=== PATIENT | male | born 1935 | race Caucasian/White ===

== ENCOUNTER 2023-02-02 09:38 | Inpatient (IN) | payer MEDICARE, BC, SELFPAY ==
[2023-02-02] VITALS (17 sets, daily range): BP systolic 57–174; BP diastolic 38–117; PULSE 76–122; RESP 18–31; TEMP 35.7–37.3; O2SAT 43–100; BMI 31.9
--- NOTE | ~2023-02-02 | XR_ITS ---
XR abdomen NG/feed tube insert INDICATION: Evaluate NG tube position. TECHNIQUE: Limited KUB perform for evaluating NG tube . COMPARISON: No prior studies for comparison. FINDINGS: NG tube tip in the stomach. Visualized bowel gas pattern is unremarkable. IMPRESSION: 1: NG tube tip in the stomach. Reviewed, dictated and finalized at location L.
--- NOTE | ~2023-02-02 | CT_ITS ---
Non-contrast Head CT History: Cardiac arrest Technique: Axial non-contrast imaging of the brain was performed. Dose reduction technique was used on this scan by utilizing automated exposure control and iterative reconstruction technique. The dose -length product (DLP) was 1135.00 mGy-cm. Findings: There is no evidence of intracranial hemorrhage, mass lesion, or acute infarct. Brain par enchyma appears normal. The ventricles and subarachnoid spaces are normal in size. The calvarium ap pears normal. The visualized paranasal sinuses and mastoid air cells are clear. Impression: No significant abnormality seen. Reviewed, dictated and finalized at location . Impression: No significant abnormality seen.
--- NOTE | ~2023-02-02 | CT_ITS ---
EXAMINATION: CT chest abdomen pelvis wo con DATE: 02/02/2023 12:38 CDT INDICATION: Shock. Cardiac arrest. TECHNIQUE: Computed tomography (CT) of the chest, abdomen, and pelvis was performed without intraveno us contrast. The dose-length product was 884.67 mGy-cm. Automated exposure control and iterative donta nstruction technique were employed. COMPARISON: None FINDINGS: CHEST CT: There is atherosclerosis of the aorta and coronary arteries. Heart size normal. No significant pleura l or pericardial effusion. There is an endotracheal tube and NG tube. There is a calcified granulomas in the spleen. There is severe emphysema. There are reticulonodular densities in the left lower lobe , image 62, most likely infectious/inflammatory. There is left upper lobe atelectasis/scarring. There is dependent atelectasis. ABDOMEN/PELVIS CT: Gallbladder is severely distended with gallstones and gallbladder wall thickening. There is a left re nal parapelvic cyst measuring 7.3 x 4.1 cm. Nonobstructive gas pattern. Smith catheter present in the bladder. Enlarged prostate gland. Colonic diverticulosis. There is a superior endplate compression f ractures of L2 and L4, likely chronic. There is wedge compression deformity of T12, likely chronic. 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 No evidence for aortic aneurysm. No lymphadenopathy. No free air or free fluid. IMPRESSION: 1. Distended gallbladder with cholelithiasis and gallbladder wall thickening. Consider cholecystitis in the appropriate clinical setting. 2: Reticulonodular densities left lower lobe, most likely infectious/inflammatory. 3: Enlarged prostate gland. Reviewed, dictated and finalized at location L. IMPRESSION: 1. Distended gallbladder with cholelithiasis and gallbladder wall thickening. C onsider cholecystitis in the appropriate clinical setting. 2: Reticulonodular densities left lower lobe, most likely infectious/inflammato ry. 3: Enlarged prostate gland.
--- NOTE | ~2023-02-02 | XR_ITS ---
XR chest 1V portable 02/02/2023 10:12 Indication: Cardiac arrest Procedure: AP portable chest Comparison: No prior studies for comparison. Findings: Endotracheal tube tip 6 cm above the tomasz. NG tube in the stomach. There are linear infil trates of the left upper thorax, most likely atelectasis/scarring. There are bibasilar infiltrates. T here is a coronary artery stents. No pneumothorax. No significant effusion. No acute osseous abnormal ity. Impression: 1: Bibasilar airspace disease may represent pneumonia and/or atelectasis. Reviewed, dictated and finalized at location L. Impression: 1: Bibasilar airspace disease may represent pneumonia and/or atelectasis.
[2023-02-02] MEDS: SODIUM CHLORIDE 0.9% IV 1,000 ML 999 ML IV CONT ×2 (09:38→10:31)
--- NOTE | 2023-02-02 09:51 | ECG_ITS ---
Measurements Intervals [place] Rate: 0 P: ND: 0 QRS: QRSD: 0 T: QT: 0 QTc: 0 Interpretive Statements ATRIAL FIBRILLATION RIGHT BUNDLE BRANCH BLOCK LOW VOLTAGE- DIFFUSE LEADS BASELINE ARTIFACT- I, II, III, AVL, AVF ABNORMAL ECG NO PREVIOUS ECG AVAILABLE FOR COMPARISON Electronically Signed On 02-02-2023 10:35:15 CDT by Pepito Villarreal D.O.
[2023-02-02] MEDS: AMIODARONE 360 MG/D5W 200 ML 360 MG/200 ML BAG 33.3 MG (09:55)
[2023-02-02 10:10] LABS: Alveolar/Arterial O2 Gradient 295.9 mmHg; Base Excess ABG -6.5 mEq/l (+/-2.0); Carboxyhemoglobin 0.7 % THb (0-2.0); Device VENTILATOR; Fractional Inspired Oxygen 100 %; HCO3 ABG 20.3 mEq/l (22.0-26.0); Methemoglobin ABG 0.1 %THb (0-1.5); Modified Allen's Test Pass; Oxygen Content ABG 17.1 %vol (16.0-22.0); Oxygen Saturation ABG 99.7 % (95.0-100.0); PCO2 ABG 45.6 mmHg (35.0-45.0); PO2 ABG 371.5 mmHg (80.0-100.0); PO2 FiO2 Ratio Arterial Blood 3.71 %; Reduced Hemoglobin 1.2 %THb (0-5.0); Site Drawn RIGHT RADIAL; Total Hemoglobin 11.7 g/dL (12.0-18.0); pH ABG 7.266 (7.350-7.450)
[2023-02-02 10:11] LABS: Arterial Blood Gas PEEP 5 cmH2O; Arterial Blood Gas Tidal Volume 500 ml; Arterial Blood Gas Vent Mode CMV; Arterial Blood Gas Ventilator rate 18 /MIN
[2023-02-02 10:11] LABS: Basophils Absolute Auto 0.1 K/mm3 (0.0-0.1); Basophils Percent Auto 0.4 % (0.2-1.2); Eosinophils Absolute Auto 0.1 K/mm3 (0-0.3); Eosinophils Percent Auto 0.6 % (0-4.4); Hematocrit 34.3 % (42.0-52.0); Hemoglobin 10.8 g/dL (14.0-18.0); Immature Granulocyte Absolute 1.34 K/mm3 (0.00-0.031); Immature Granulocyte Percent A 5.5 % (0-0.5); Lymphocytes Absolute Auto 5.32 K/mm3 (0.9-3.2); Lymphocytes Percent Auto 21.8 % (18.3-44.2); Mean Corpuscular HGB Conc 31.5 g/dl (32-36); Mean Corpuscular Volume 98.6 fl (80-100); Mean Platelet Volume 11.1 fl (7.4-10.4); Monocytes Absolute Auto 1.7 K/mm3 (0.1-0.6); Monocytes Percent Auto 7.1 % (2.6-8.5); Neutrophils Absolute Auto 15.8 K/mm3 (1.3-6.7); Neutrophils Percent Auto 64.6 % (45.5-73.1); Platelet Count Result 246 k/mm3 (150-375); Red Blood Count 3.48 M/mm3 (4.6-6.20); Red Cell Distribution Width 14.6 % (11.5-14.5); White Blood Count 24.4 K/mm3 (4.5-10.0)
--- NOTE | 2023-02-02 10:12 | ECHO_ITS ---
Patient Info Name: Jay Mccabe Age: 87 years : 1935 Gender: Male Ht: 70 in Wt: 145 lbs BSA: 1.80 m2 HR: 110 bpm BP: 142 / 92 mmHg Heart Rhythm: Sinus Rhythm Technical Quality: Good Exam Date: 02/02/2023 1:01 PM Exam Location: [facility] Patient Status: Inpatient Admit Date: 02/02/2023 Staff Ordering Physician: Wu Muller DO Plant Nursery Worker: Haily Sandoval RDCS Attending Provider: Abena Torres MD Referring Physician: Yohana MUSE; Exam Type: CA echo doppler color flow Study Info Indications I46.9 - Cardiac arrest, cause unspecified Complete two-dimensional, color flow and Doppler transthoracic echocardiogram is performed. Summary 1. Complete two-dimensional, color flow and Doppler transthoracic echocardiogram is performed. 2. Left ventricular chamber dimension is normal. 3. Left ventricular systolic function is normal, estimated at 55-60%. 4. There is no increased left ventricular wall thickness. 5. The left ventricular diastolic function is indeterminate. 6. Right ventricular chamber dimension is moderately enlarged. 7. Right ventricular systolic function is reduced. 8. Severe hypokinesis noted in the mid RV free wall to the apex. 9. Left atrial chamber dimension is mildly enlarged. 10. Right atrial chamber dimension is mildly enlarged. 11. There is at least moderate aortic valve stenosis with a peak velocity of 237 cm/s, mean gradient of 12 mmHg. the Calculated CHRISTIE is not accurate. 12. There is mild aortic valve regurgitation. 13. 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 14. There is mild mitral valve regurgitation. 15. The mitral valve annulus is moderately calcified. 16. There is mild tricuspid valve regurgitation. 17. Moderate pulmonary hypertension, estimated pulmonary arterial systolic pressure is 47 mmHg. 18. There is mild pulmonic regurgitation. Left Ventricle Left ventricular chamber dimension is normal. Left ventricular systolic function is normal, estimated at 55-60%. There is no increased left ventricular wall thickness. The left ventricular diastolic function is indeterminate. Right Ventricle Right ventricular chamber dimension is moderately enlarged. Right ventricular systolic function is reduced. Severe hypokinesis noted in the mid RV free wall to the apex. Left Atria Left atrial chamber dimension is mildly enlarged. Right Atria Right atrial chamber dimension is mildly enlarged. Atrial Septum Intact interatrial septum visualized by color flow imaging. Aortic Valve The aortic valve is trileaflet. There is at least moderate aortic valve stenosis with a peak velocity of 237 cm/s, mean gradient of 12 mmHg. the Calculated CHRISTIE is not accurate. There is mild aortic valve regurgitation. Pulmonic Valve The pulmonic valve is normal. There is no pulmonic valve stenosis. There is mild pulmonic regurgitation. Mitral Valve The mitral valve has anterior prolapse and posterior prolapse. There is no mitral valve stenosis. There is mild mitral valve regurgitation. The mitral valve annulus is moderately calcified. Tricuspid Valve The tricuspid valve leaflets are normal. There is no significant tricuspid valve stenosis. There is mild tricuspid valve regurgitation. Moderate pulmonary hypertension, estimated pulmonary arterial systolic pressure is 47 mmHg. Pericardium/Pleural The pericardium appears normal. There is trivial pericardial effusion. Inferior Vena Cava Normal inferior vena cava with >50% collapse upon inspiration consistent with normal right atrial pressure, 10 mmHg.
[2023-02-02 10:20] LABS: Albumin Level 3.4 g/dL (3.5-5.1); Alkaline Phosphatase 80 U/L (38-126); Anion Gap 15 mmol/L (8-16); Aspartate Amino Transferase 66 U/L (17-59); Bilirubin,Total 0.9 mg/dL (0.2-1.3); Blood Urea Nitrogen 38 mg/dL (9-20); Calcium 7.2 mg/dL (8.4-10.2); Carbon Dioxide 17 mmol/L (22-30); Chloride 100 mmol/L (98-107); Cholesterol 80 mg/dL (0-200); Estimated Glomerular Filt Rate 58; Glucose 311 mg/dL (65-110); HDL Direct 39 mg/dL; Potassium 4.9 mmol/L (3.4-5.0); Sodium 132 mmol/L (137-145); Triglycerides 80 mg/dL (<150)
--- NOTE | 2023-02-02 10:22 | ED.CPR ---
HPI - CPR General Chief Complaint: Cardiac Arrest/CPR Stated Complaint: cardiac arrest History of Present Illness HPI narrative: Pt was sitting on couch with watching TV and went unresponsive. She called 911 and EMS arrived in 2-3 minutes and found patient pulseless and not breathing. CPR started, Intubated. Per EMS pt went into v fib and was shocked. Pt went in and out of v fiv and intermittently got pulse back and then lost again. Pt shocked 5 times, given amiodarone 300 mg and 150 mg, epi 1 mg 3x. On arrival Austyn in place doing compressions. Pt has Hx of [place] and stents per Dr Szymanski at [facility] and has COPD hx on oxygen. Related Data Home Medications Medication Instructions Recorded Confirmed Ventolin HFA 2 puff inhalation Q4H PRN Wheezing 02/02/23 02/02/23 alfuzosin 10 mg tablet,extended 10 mg PO DAILY 02/02/23 02/02/23 release 24 hr arformoterol 15 mcg/2 mL solution 15 mcg inhalation Q12H 02/02/23 02/02/23 for nebulization atorvastatin 40 mg tablet 40 mg PO DAILY 02/02/23 02/02/23 budesonide 0.5 mg/2 mL suspension 0.5 mg inhalation Q12H 02/02/23 02/02/23 for nebulization clopidogrel 75 mg tablet 75 mg PO DAILY 02/02/23 02/02/23 dutasteride 0.5 mg capsule 0.5 mg PO HS 02/02/23 02/02/23 ferrous sulfate 324 mg (65 mg 324 mg PO Q12H 02/02/23 02/02/23 iron) tablet,delayed release furosemide 40 mg tablet 40 mg PO DAILY 02/02/23 02/02/23 latanoprost 0.005 % eye drops 1 drp EACH EYE DAILY 02/02/23 02/02/23 lisinopril 5 mg tablet 5 mg PO DAILY 02/02/23 02/02/23 metformin 500 mg tablet 500 mg PO DAILY 02/02/23 02/02/23 metoprolol succinate 50 mg 50 mg PO DAILY 02/02/23 02/02/23 tablet,extended release 24 hr nitroglycerin 0.4 mg sublingual 0.4 mg sublingual Q5M PRN Chest 05/16/23 05/16/23 tablet Pain revefenacin 175 mcg/3 mL solution 175 mcg inhalation DAILY 02/02/23 02/02/23 for nebulization (Yupelri) Allergies Allergy/AdvReac Type Severity Reaction Status Date / Time Sulfa (Sulfonamide Allergy Swelling Verified 02/02/23 10:40 Antibiotics) Review of Systems Review of Systems: ROS unobtainable: Yes unobtainable due to medical condition [facility] Family History Family History (Updated 02/02/23 @ 15:08 by Kavya Ta RN) Other Unknown family medical history Social History Social History Smoking status: Former smoker Alcohol intake: former Substance use: former Spiritual care concerns: Yes Exam Const: Other: unresponsive Neck: Neck: normal visual inspection, no lymphadenopathy and no meningeal signs Chest: Chest palpation & inspection: normal inspection of the chest Resp: Other: apneic but good BS with bagged respirations Cardio: Rate: regular rate Rhythm: regular rhythm GI: Auscultation: normal bowel sounds Skin: General skin exam: normal color Rashes: no rashes Neuro: Other: unresponsive Extrem: General: normal to inspection and no clubbing, cyanosis or edema Psych: Other: unresponsive Course Course Emergency Course: austyn held and pt had pulse and SBP in 120's, EKG showed ventricular rhythm rate 80's but no ST elevation. Discussed with Dr Cornejo, initiate hypothermia protocol and discuss with cardiology. Discussed with Dr Fox agreed to see pt in consult. Pt SBP now 80's, d/w dr cornejo said ok to start neosynephrine peripherally or levophed if central line. discussed with dr tay will follow. Vital Signs Vital signs: Vital Signs Pulse Rate 76 02/02/23 09:52 Pulse Oximetry 100 02/02/23 09:52 Oxygen Delivery Mechanical Ventilation 02/02/23 09:52 Fraction of Inspired Oxygen 100 02/02/23 09:52 Temperature 99.1 F 02/02/23 16:00 Pulse Rate 80 02/02/23 16:00 Respiratory Rate 18 02/02/23 16:00 Blood Pressure 57/38 L 02/02/23 16:00 Pulse Oximetry 43 L 02/02/23 16:00 Oxygen Delivery Mechanical Ventilation 02/02/23 12:00 Fraction of Inspired Oxygen 100 02/02/23 11:48
[2023-02-02 10:30] LABS: LDL Cholesterol Direct 34 mg/dL
[2023-02-02 10:31] LABS: Alanine Aminotransferase 70 U/L (6-50)
[2023-02-02 10:38] LABS: Troponin I 0.035 ng/mL (0.000-0.034)
[2023-02-02 10:39] LABS: Partial Thromboplastin Time 31.9 SECONDS (22.3-36.8)
[2023-02-02 10:48] LABS: Glucose Point of Care 233 mg/dl (65-105)
[2023-02-02 10:57] LABS: INR 1.2; Prothrombin Time 15.8 Seconds (11.1-14.7)
--- NOTE | 2023-02-02 10:57 | PC.NURSE ---
Patient came in via EMS getting chest compressions. When the patient was transfered over to our stretcher he got a pulse back and CPR was stopped. Heart beat back at 0950.
[2023-02-02 10:58] LABS: Platelet Estimate Adequate (Adequate); Poikilocytosis 1+ (NORMAL)
[2023-02-02 10:59] LABS: Crenated RBC 1+ (NORMAL); Schistocytes None Seen (NORMAL)
[2023-02-02 11:11] LABS: Creatine Kinase 376 U/L (55-170); Magnesium 2.1 mg/dL (1.6-2.3)
[2023-02-02 11:23] LABS: Amphetamine Screen Urine Negative (Negative); Barbiturate Screen Urine Negative (Negative); Benzodiazepines Screen Urine Negative (Negative); Cannabinoid Screen Urine Negative (Negative); Cocaine Screen Urine Negative (Negative); Methadone Screen Urine Negative (Negative); Opiate Screen Urine Negative (Negative); Phencyclidine Screen Urine Negative (Negative)
[2023-02-02] MEDS: MIDAZOLAM HCL (*CRX) 2 MG/2 ML VIAL 3 MG IV PUSH (11:36)
[2023-02-02 11:38] LABS: Lactic Acid Reflex 4.2 mmol/L (0.7-2.0)
--- NOTE | 2023-02-02 11:45 | ADMGEN ---
This patient, Jay Mccabe, was admitted to Intensive Care Unit-5. Family oriented to hospital policies and general routines including ID bracelet, bed and alarms, visiting hours, pain management, procedures, bathroom and other care routines, personal items, smoking policy, room service/diet, and visiting hours. Information on how to activate the Rapid Response Team has been discussed. Family are encouraged to report perceived risks to care and to ask questions if they do not understand what they are told or what they should do.
--- NOTE | 2023-02-02 12:31 | WPDCNINT ---
Assessment and Plan Assessment and plan (1) Cardiac arrest: Code(s): I46.9 - Cardiac arrest, cause unspecified Status: Acute Assessment and Plan: Patient presented with cardiac arrest would to ventricular fibrillation, ROSC was attained around 30 minutes -defibrillated x5, epinephrine, amiodarone bolus x2 -EKG showed atrial fibrillation, right bundle-branch block, new STEMI -cardiology has been consulted -will start target temperature management -will start patient on Keppra for seizure prophylaxis post cardiac arrest -discuss with son and [id number], his stated that patient was a DNR, they will discuss with patient's and get back to me regarding further plan of care (2) Respiratory failure: Code(s): J96.90 - Respiratory failure, unspecified, unspecified whether with hypoxia or hypercapnia Status: Acute Assessment and Plan: Respiratory failure secondary to cardiac arrest, patient also has a history of COPD on home oxygen -chest x-ray and ABGs reviewed -currently on CMV mode of ventilation, peep 5 and 50% FiO2 -will add bronchodilators and budenoside -will keep him off sedation for now 02/02: CT scan of the chest abdomen and pelvis without contrast 1. Distended gallbladder with cholelithiasis and gallbladder wall thickening. Consider cholecystitis in the appropriate clinical setting. 2: Reticulonodular densities left lower lobe, most likely infectious/inflammatory. 3: Enlarged prostate gland. (3) COPD (chronic obstructive pulmonary disease): Code(s): J44.9 - Chronic obstructive pulmonary disease, unspecified Status: Acute Assessment and Plan: Patient intubated, on bronchodilators (4) Severe sepsis: Code(s): A41.9 - Sepsis, unspecified organism; R65.20 - Severe sepsis without septic shock Status: Acute Assessment and Plan: Severe sepsis with elevated WBC, lactic acidosis, hypotension -blood and urine cultures have been obtained -started patient on vancomycin and cefepime -patient received 2 L of IV fluid bolus -repeat lactic acid -will continue maintenance IV fluids - monitor urine output and renal function (5) Diabetes: Code(s): E11.9 - Type 2 diabetes mellitus without complications Status: Acute Assessment and Plan: Sliding scale insulin and Accu-Cheks (6) Atrial fibrillation: Code(s): I48.91 - Unspecified atrial fibrillation Status: Acute Assessment and Plan: Patient atrial fibrillation, currently rate controlled -continue amiodarone infusion -patient was given 1 dose of therapeutic Lovenox. Plan DVT prophylaxis: Lovenox Stress ulcer prophylaxis: Proton Nutrition: NPO Code Status: Do not resuscitate Critical Care Time Spent: 55 minutes Discussed with son, Jay JAIN and his in the conference room, updated them with patient's condition and plan of care. The son stated that the patient has a DNR at [place] and these would not be as wishes. He is going to discuss with his mother, patient's and will get back to me regarding withdrawal of care versus continuing current management. He requested to make the patient a do not resuscitate at this time if he does have a cardiac arrest. I answered all questions, DNR status was placed in the chart and bedside RN and charge nurse were notified Due to a high probability of clinically significant, life threatening deterioration, the patient required my highest level of preparedness to intervene emergently and I personally spent this critical care time directly and personally managing the patient. This critical care time included obtaining a history; examining the patient; pulse oximetry; ordering and review of studies; arranging urgent treatment with development of a management plan; evaluation of patient's response to treatment; frequent reassessment; and discussions with other providers. It was exclusive of separately billable procedures a
[2023-02-02 13:24] LABS: Troponin I 0.123 ng/mL (0.000-0.034)
[2023-02-02 14:16] LABS: Reflex Lactic Acid Yes or No Add Lactic
[2023-02-02] MEDS: MORPHINE SULFATE (*CRX) 2 MG/ML INJ IV PUSH (15:15)
[2023-02-02] MEDS: LORazepam INJ (*CRX) 2 MG/ML VIAL IV PUSH (15:15)
--- NOTE | 2023-02-02 16:03 | PM.IMHP ---
H&P: HPI History of Present Illness Date/Time: 02/02/23 16:03 Chief Complaint: Cardiac arrest Narrative: ED-HPI narrative: Pt was sitting on couch with watching TV and went unresponsive.? She called 911 and EMS arrived in 2-3 minutes and found patient pulseless and not breathing.? CPR started, Intubated.? Per EMS pt went into v fib and was shocked.? Pt went in and out of v fiv and intermittently got pulse back and then lost again.? Pt shocked 5 times, given amiodarone 300 mg and 150 mg, epi 1 mg 3x.? On arrival Austyn in place doing compressions.? Pt has Hx of [place] and stents per Dr Szymanski at [facility] and has COPD hx on oxygen. Patient family has decided to withdraw the care, and all the family members are present in the room. [facility] Family History Family History (Updated 02/02/23 @ 15:08 by Kavya Ta RN) Other Unknown family medical history Social History Social History Smoking status: Former smoker Alcohol intake: former Substance use: former Spiritual care concerns: Yes Meds Home Medications and Allergies Home Medications Medication Instructions Recorded Confirmed Type Ventolin HFA 2 puff inhalation Q4H PRN Wheezing 02/02/23 02/02/23 History alfuzosin 10 mg tablet,extended 10 mg PO DAILY 02/02/23 02/02/23 History release 24 hr arformoterol 15 mcg/2 mL solution 15 mcg inhalation Q12H 02/02/23 02/02/23 History for nebulization atorvastatin 40 mg tablet 40 mg PO DAILY 02/02/23 02/02/23 History budesonide 0.5 mg/2 mL suspension 0.5 mg inhalation Q12H 02/02/23 02/02/23 History for nebulization clopidogrel 75 mg tablet 75 mg PO DAILY 02/02/23 02/02/23 History dutasteride 0.5 mg capsule 0.5 mg PO HS 02/02/23 02/02/23 History ferrous sulfate 324 mg (65 mg 324 mg PO Q12H 02/02/23 02/02/23 History iron) tablet,delayed release furosemide 40 mg tablet 40 mg PO DAILY 02/02/23 02/02/23 History latanoprost 0.005 % eye drops 1 drp EACH EYE DAILY 02/02/23 02/02/23 History lisinopril 5 mg tablet 5 mg PO DAILY 02/02/23 02/02/23 History metformin 500 mg tablet 500 mg PO DAILY 02/02/23 02/02/23 History metoprolol succinate 50 mg 50 mg PO DAILY 02/02/23 02/02/23 History tablet,extended release 24 hr nitroglycerin 0.4 mg sublingual 0.4 mg sublingual Q5M PRN Chest 02/02/23 02/02/23 History tablet Pain revefenacin 175 mcg/3 mL solution 175 mcg inhalation DAILY 02/02/23 02/02/23 History for nebulization (Yupelri) Allergies Allergy/AdvReac Type Severity Reaction Status Date / Time Sulfa (Sulfonamide Allergy Swelling Verified 02/02/23 10:40 Antibiotics) Vital Signs Vital Signs - 24 hr 02/02/23 09:52 02/02/23 10:45 02/02/23 10:20 Temperature 96.3 F L Pulse Rate 76 83 82 Respiratory Rate 20 18 Blood Pressure 174/117 H Pulse Oximetry 100 99 99 Oxygen Delivery Mechanical Ventilation Mechanical Ventilation Fraction of Inspired Oxygen 100 02/02/23 10:22 02/02/23 10:23 02/02/23 10:30 Temperature Pulse Rate 78 88 83 Respiratory Rate 18 18 20 Blood Pressure 81/49 L 82/71 L Pulse Oximetry 99 100 100 Oxygen Delivery Fraction of Inspired Oxygen 02/02/23 10:31 02/02/23 11:10 02/02/23 11:30 Temperature Pulse Rate 84 102 H Respiratory Rate 20 20 Blood Pressure 87/49 L 104/78 142/92 H Pulse Oximetry 99 97 Oxygen Delivery Fraction of Inspired Oxygen 02/02/23 11:48 02/02/23 13:00 02/02/23 14:00 Temperature Pulse Rate 109 H 110 H 102 H Respiratory Rate Blood Pressure Pulse Oximetry 100 Oxygen Delivery Mechanical Ventilation Fraction of Inspired Oxygen 100 02/02/23 13:00 02/02/23 14:00 02/02/23 11:45 Temperature 97.8 F 98.4 F Pulse Rate 110 H 102 H 122 H Respiratory Rate 25 H 18 Blood Pressure 112/76 72/60 L Pulse Oximetry 100 100 Oxygen Delivery Fraction of Inspired Oxygen 02/02/23 11:45 02/02/23 12:00 02/02/23 12:00 Temperature 96.7 F L 97.5 F L Pulse Rate 122 H 119 H 119 H Respi
--- NOTE | 2023-02-02 17:45 | PM.DDS ---
Discharge Summary Date and Time Date of : 02/02/23 Time of : 16:13 Provider Pronounced By: rachana benítez rn and charlotte lozada rn Probable Cause of Probable Cause of : Cardiac arrest Summary Hospital Course: Pt was sitting on couch with watching TV and went unresponsive.? She called 911 and EMS arrived in 2-3 minutes and found patient pulseless and not breathing.? CPR started, Intubated.? Per EMS pt went into v fib and was shocked.? Pt went in and out of v fiv and intermittently got pulse back and then lost again.? Pt shocked 5 times, given amiodarone 300 mg and 150 mg, epi 1 mg 3x.? On arrival Austyn in place doing compressions.? Pt has Hx of [place] and stents per Dr Szymanski at [facility] and has COPD hx on oxygen. Patient family has decided to withdraw the care, and all the family members are present in the room. Later patient Additional Data Confirmation of as documented by pronouncing clinician: Pupillary Reflex, Palpable Pulses, Response to Stimuli, Heart Tones and Breath Sounds Name of Provider Notified: Dr. Cornejo and Dr. Torres Time Provider Notified: 16:15 Provider Requests Autopsy: No Family Requests Autopsy: No [employer] Member Notified: Yes Date [facility] Notified of : 02/02/23 Time [facility] Notified of : 16:26
== END 2023-02-02 16:13 | disposition expired | DRG 308 ==
LOC: ANHED 11:12 → ANHICU 11:46
PROVIDERS: Admitting Provider Family Medicine; Emergency Provider Emergency Medicine; Visit Provider Family Medicine
DX: I49.01 Ventricular fibrillation (principal); A41.9 Sepsis, unspecified organism; J96.90 Respiratory failure, unspecified, unspecified whether with hypoxia or hypercapnia; R65.20 Severe sepsis without septic shock; Z66 Do not resuscitate; E11.22 Type 2 diabetes mellitus with diabetic chronic kidney disease; I46.9 Cardiac arrest, cause unspecified; I50.9 Heart failure, unspecified; I48.91 Unspecified atrial fibrillation; I25.2 Old myocardial infarction; J44.9 Chronic obstructive pulmonary disease, unspecified; N18.9 Chronic kidney disease, unspecified; Z87.891 Personal history of nicotine dependence; Z95.5 Presence of coronary angioplasty implant and graft; Z79.01 Long term (current) use of anticoagulants; Z99.81 Dependence on supplemental oxygen; Z79.84 Long term (current) use of oral hypoglycemic drugs
CPT/HCPCS: 36415; 36600; 70450; 71045; 71250; 74176; 80053; 80061; 80307; 82375; 82550; 82805; 82948; 83050; 83605; 83735; 84484; 85025; 85610; 85730; 86850; 86900; 86901; 87040; 87086; 92950; 93005; 93306; 96361; 96374; 99291; A9270; J0171; J0282; J2060; J2250; J2270; J7030